=== PATIENT | female | born 1990 | race Caucasian/White ===

== ENCOUNTER 2020-10-05 16:53 | Inpatient (IN) | payer OTHER ==
--- NOTE | 2020-10-05 17:05 | ER Document Report ---
ED Medical Screen (RME) - General Chief Complaint: Abdominal Pain Stated Complaint: ABDOMINAL PAIN Time Seen by Provider: 10/05/20 17:00 Primary Care Provider: CROW CHEN FNP-BC [Primary Care Provider] - Follow up as needed Mode of Arrival: Ambulatory Information source: Patient Notes: 29-year-old female presented to ED with complaint of abdominal pain from the much from top to bottom on the center of her stomach. She states is cramping in her through to her back. She states she has been nausea and vomiting has not eaten the day smokes half to 1 pack/day drinks monthly has a temperature of 100.5 does not know if she has had fever before now. Pulse is 133 will get a septic work-up started. She states he had abdomen started hurting yesterday and she woke up last night and hot sweats and completely drenched. I have greeted and performed a rapid initial assessment of this patient. A comprehensive ED assessment and evaluation of the patient, analysis of test results and completion of medical decision making process will be conducted by an additional ED providers. TRAVEL OUTSIDE OF THE [place] IN LAST 30 DAYS: No - Related Data Allergies/Adverse Reactions: amoxicillin trihydrate [From Augmentin] Allergy (Verified 12/24/13 19:06) Potassium Clavulanate * [From Augmentin] Allergy (Verified 12/24/13 19:06) Past Medical History - General Information source: Patient - Social History Cigarette use (# per day): Yes - 1/2 to 1 pack/day Frequency of alcohol use: Occasional Drug Abuse: None Lives with: Family Family history: Reviewed & Not Pertinent - Past Medical History Cardiac Medical History: Reports: None Pulmonary Medical History: Reports: None EENT Medical History: Reports: None Neurological Medical History: Reports: Hx Migraine Endocrine Medical History: Reports: None Renal/ Medical History: Reports: None Malignancy Medical History: Reports: None GI Medical History: Reports: None Musculoskeltal Medical History: Reports Hx Musculoskeletal Trauma Skin Medical History: Reports None Psychiatric Medical History: Reports: None Traumatic Medical History: Reports: Hx Fractures - t5 t6, Hx Spine Fracture Infectious Medical History: Reports: None Past Surgical History: Reports: Hx Orthopedic Surgery - Back surgery with fusion T5-6 - Immunizations Immunizations up to date: No Hx Diphtheria, Pertussis, Tetanus Vaccination: No Physical Exam - Vital signs Vitals: Temp Pulse Resp BP Pulse Ox 100.5 F H 133 H 16 120/78 98 10/05/20 16:57 10/05/20 16:57 10/05/20 16:57 10/05/20 16:57 10/05/20 16:57 Course - Vital Signs Vital signs: Temp Pulse Resp BP Pulse Ox 100.5 F H 133 H 16 120/78 98 10/05/20 16:57 10/05/20 16:57 10/05/20 16:57 10/05/20 16:57 10/05/20 16:57 Doctor's Discharge - Discharge Referrals: CROW CHEN, LIFT SLAB OPERATOR-BC [Primary Care Provider] - Follow up as needed
[2020-10-05] MEDS ORDERED: NORMAL SALINE 1000 ML 1,000 ML IV ONE ×2 (17:07→17:09)
[2020-10-05] MEDS ORDERED: ACETAMINOPHEN 325 MG TABLET PO ONE (17:08)
--- NOTE | 2020-10-05 18:03 | RADIOLOGY REPORT (SQ) ---
EXAM DESCRIPTION: CHEST SINGLE VIEW IMAGES COMPLETED DATE/TIME: 10/05/2020 5:48 pm REASON FOR STUDY: cough fever COMPARISON: 12/24/2013 EXAM PARAMETERS: NUMBER OF VIEWS: One view. TECHNIQUE: Single frontal radiographic view of the chest acquired. RADIATION DOSE: NA LIMITATIONS: None. FINDINGS: LUNGS AND PLEURA: No opacities, masses or pneumothorax. No pleural effusion. MEDIASTINUM AND HILAR STRUCTURES: No masses. Contour normal. HEART AND VASCULAR STRUCTURES: Heart normal in size. Normal vasculature. BONES: No acute findings. HARDWARE: Spinal hardware. OTHER: No other significant finding. IMPRESSION: NO ACUTE RADIOGRAPHIC FINDING IN THE CHEST. TECHNICAL DOCUMENTATION: JOB ID: [id number] 2010 [employer]- All Rights Reserved Reading location - IP/workstation name: [email or web address]
[2020-10-05 18:48] LABS: HEMATOCRIT 40.7 % (36.0-47.0); HEMOGLOBIN 13.9 g/dL (12.0-15.5); MEAN CORPUSCULAR HEMOGLOBIN 32.1 pg (27.0-33.4); MEAN CORPUSCULAR HGB CONC 34.2 g/dL (32.0-36.0); MEAN CORPUSCULAR VOLUME 94 fl (80-97); PLATELET COUNT 175 10^3/uL (150-450); RED BLOOD COUNT 4.33 10^6/uL (3.72-5.28); RED CELL DISTRIBUTION WIDTH 14.2 % (11.5-14.0); WHITE BLOOD COUNT 17.9 10^3/uL (4.0-10.5)
[2020-10-05 18:57] LABS: PROTHROMBIN TIME 14.4 SEC (11.4-15.4)
[2020-10-05 18:59] LABS: BLOOD UREA NITROGEN 7 mg/dL (7-20); CALCIUM 8.9 mg/dL (8.4-10.2); GLUCOSE 89 mg/dL (75-110)
[2020-10-05 19:00] LABS: ALBUMIN 3.6 g/dL (3.5-5.0); ALKALINE PHOSPHATASE 79 U/L (38-126); ANION GAP 8 (5-19); ASPARTATE AMINO TRANSFERASE 14 U/L (14-36); BILIRUBIN,DIRECT 0.1 mg/dL (0.0-0.4); BILIRUBIN,TOTAL 0.7 mg/dL (0.2-1.3); CARBON DIOXIDE 24 mmol/L (22-30); CHLORIDE 100 mmol/L (98-107); POTASSIUM 3.7 mmol/L (3.6-5.0); TOTAL PROTEIN 6.7 g/dL (6.3-8.2)
[2020-10-05 19:04] LABS: ABSOLUTE LYMPHOCYTES# (MANUAL) 0.7 10^3/uL (0.5-4.7); ABSOLUTE MONOCYTES # (MANUAL) 0.9 10^3/uL (0.1-1.4); BAND NEUTROPHILS % (MANUAL) 1 % (3-5); BASOPHILS % (MANUAL) 0 % (0-2); EOSINOPHILS % (MANUAL) 0 % (0-6); LYMPHOCYTES % (MANUAL) 3 % (13-45); METAMYELOCYTES % (MANUAL) 1 % (0-1); MONOCYTES % (MANUAL) 5 % (3-13); SEGMENTED NEUTROPHILS % (MAN) 89 % (42-78); TOTAL CELLS COUNTED 100
[2020-10-05 19:05] LABS: PLATELET CLUMPS PRESENT; PLATELET COMMENT ADEQUATE; RBC MORPHOLOGY COMMENT NORMO-CYTIC/CHROMIC
[2020-10-05 19:06] LABS: SMUDGE CELLS PRESENT
--- NOTE | 2020-10-05 19:33 | ER Document Report ---
ED General - General Chief Complaint: Abdominal Pain Stated Complaint: ABDOMINAL PAIN Time Seen by Provider: 10/05/20 17:00 Mode of Arrival: Ambulatory Information source: Patient Notes: Patient presents to the ER for evaluation of lower abdominal pain radiating to the low back with dysuria that began yesterday. The patient states she has noticed fever with nighttime sweats last night. She denies cough or congestion. She denies chest pain or shortness of breath. She admits to nausea but denies vomiting. She denies diarrhea. Denies vag bleeding, pain or discharge. Nursing notes reviewed and past medical, social, and family histories reviewed and validated. TRAVEL OUTSIDE OF THE [place] IN LAST 30 DAYS: No - Related Data Allergies/Adverse Reactions: amoxicillin trihydrate [From Augmentin] Allergy (Verified 10/05/20 18:37) Potassium Clavulanate * [From Augmentin] Allergy (Verified 10/05/20 18:37) Past Medical History - General Information source: Patient Last Menstrual Period: 1 week - Social History Smoking Status: Current Every Day Smoker Cigarette use (# per day): Yes - 1/2 to 1 pack/day Chew tobacco use (# tins/day): No Smoking Education Provided: Yes Frequency of alcohol use: Occasional Drug Abuse: None Lives with: Family Family History: None Patient has suicidal ideation: No Patient has homicidal ideation: No - Past Medical History Cardiac Medical History: Reports: None Pulmonary Medical History: Reports: None EENT Medical History: Reports: None Neurological Medical History: Reports: Hx Migraine Endocrine Medical History: Reports: None Renal/ Medical History: Reports: None Malignancy Medical History: Reports: None GI Medical History: Reports: None Musculoskeletal Medical History: Reports Hx Musculoskeletal Trauma Skin Medical History: Reports None Psychiatric Medical History: Reports: None Traumatic Medical History: Reports: Hx Fractures - t5 t6, Hx Spine Fracture Infectious Medical History: Reports: None Past Surgical History: Reports: Hx Orthopedic Surgery - Back surgery with fusion T5-6 - Immunizations Immunizations up to date: No Hx Diphtheria, Pertussis, Tetanus Vaccination: No Review of Systems - Review of Systems Notes: Constitutional: Positive for fever. HENT: Negative for sore throat. Eyes: Negative for visual changes. Cardiovascular: Negative for chest pain. Respiratory: Negative for shortness of breath. Gastrointestinal: Positive for nausea. Negative for diarrhea. Genitourinary: Positive for dysuria. Positive for low back pain. Positive for lower abdominal pain. Musculoskeletal: Negative for back pain. Skin: Negative for rash. Neurological: Negative for headaches, weakness or numbness. 10 point ROS negative except as marked above and in HPI. Physical Exam - Vital signs Vitals: Temp Pulse Resp BP Pulse Ox 100.5 F H 133 H 16 120/78 98 10/05/20 16:57 10/05/20 16:57 10/05/20 16:57 10/05/20 16:57 10/05/20 16:57 - Notes Notes: CONSTITUTIONAL: Patient is illappearing. SKIN: Warm, dry, and intact without rash EYES: Extraocular movements are grossly intact, clear conjunctiva HENT: Normocephalic, atraumatic, moist mucus membranes NECK: No obvious swelling, normal range of motion PULMONARY: Normal chest rise and fall. Breath sounds clear and equal bilaterally. No respiratory distress or stridor CARDIOVASCULAR: Regular rate. No murmurs, rubs, gallops. Distal extremities are warm and well perfused. ABDOMINAL: The abdomen is soft. TTP over the suprapubic area. NEUROLOGIC: Normal speech, moves all extremities. MUSCULOSKELETAL: No gross deformities, atraumatic PSYCHIATRIC: Normal mood and affect Course - Vital Signs Vital signs: Temp Pulse Resp BP Pulse Ox 100.5 F H 115 H 16 120/78 97 10/05/20 16:57 10/05/20 18:10 10/05/20 16:57 10/05/20 16:57 10/05/20 18:15 - Laboratory Result Diagrams: 10/05/20 18:24 10/05/20 18:24 Laboratory results interpreted by me: 10/05/20 10/05/20 10/05/20 18:24 18:24 20:30 WBC 17.9 H RDW 14.2 H Seg Neuts % (Manual) 89 H Band Neutrophils % 1 L Lymphocytes % (Manual) 3 L Abs Neuts (Manual) 16.3 H Sodium 132.1 L Urine Protein 30 H Urine Ketones 80 H Urine Blood MODERATE H Ur Leukocyte Esterase LARGE H - Consults Hospitalist consult Time consulted: 21:57 Reason for consultation: 10/05/20 21:57 This case was discussed with Dr. Goodman who agrees to evaluate the patient in the emergency room for admission. Discharge - Discharge Clinical Impression: Acute pyelonephritis Condition: Stable Disposition: ADMITTED OBSERVATION Admitting Provider: Rex (Hospitalist) Unit Admitted: Medical Floor
--- NOTE | 2020-10-05 19:47 | EKG REPORT ---
SEVERITY:- OTHERWISE NORMAL ECG - SINUS TACHYCARDIA : Confirmed by: Ector Buck MD 05-Oct-2020 19:47:28
[2020-10-05 20:46] LABS: APPEARANCE,URINE CLOUDY; BILIRUBIN,URINE NEGATIVE (NEGATIVE); COLOR,URINE YELLOW; GLUCOSE, URINE NEGATIVE (NEGATIVE); KETONES,URINE 80 mg/dL (NEGATIVE); LEUKOCYTE ESTERASE,URINE LARGE (NEGATIVE); NITRITE,URINE NEGATIVE (NEGATIVE); PROTEIN,URINE 30 mg/dL (NEGATIVE); URINE SPECIFIC GRAVITY 1.019; UROBILINOGEN,URINE NEGATIVE mg/dL (<2.0)
--- NOTE | 2020-10-05 21:09 | RADIOLOGY REPORT (SQ) ---
EXAM DESCRIPTION: CT ABDOMEN PELVIS WITHOUT IV CONTRAST COMPLETED DATE/TME: 10/05/2020 20:16 CLINICAL HISTORY: 29 years, Female, lower abd pain COMPARISON: None. TECHNIQUE: Axial images without IV or oral contrast. Images stored on PACS. All CT scanners at this facility use dose modulation, iterative reconstruction, and/or weight based dosing when appropriate to reduce radiation dose to as low as reasonably achievable (ALARA). FINDINGS: Lung bases are unremarkable. Liver demonstrates a tiny 5 mm hypodensity at the junction of the right and left lobes. Series 601 image 16. Two small to characterize. More likely a cyst. Mild to moderate splenomegaly. Biliary system, pancreas, adrenal glands, kidneys, aorta and para-aortic regions are unremarkable. Suspected mild gastritis. Minimal increased fluid in small bowel loops with minimal dilatation. Mild increased colonic stool. No evidence for free fluid. Lumbar spine is unremarkable. Kidneys without hydronephrosis or focal lesions. CT of the pelvis demonstrates a dilated cecum and ascending colon extending inferiorly to the lower pelvis. Distended with fluid. There are multiple tiny air bubbles projecting in the periphery of the cecum. These appear to simulate air in the bowel wall but a more likely located in the peripheral lumen the to the wall. Series 3 image 69. There is a normal appendix seen in the right pelvis. There is an anteflexed uterus which is displaced to the left by the dilated cecum. No suspicious adnexal abnormality or free fluid. No obvious adenopathy. Bony pelvis is unremarkable. IMPRESSION: 1. There is a moderately dilated cecum extending inferiorly into the right lower pelvis and displacing the uterus and small bowel towards the left side. There is no obvious cecal wall thickening. Air bubbles projecting in the periphery of the cecum are more likely intraluminal and less likely in the colonic wall. No evidence for free air. Better evaluation of the cecum can be achieved with injection of IV contrast. 2. Nonspecific bowel pattern with mild gastritis and mild dilatation of small bowel loops increased colonic stool. 3. Normal appendix. 4. Tiny 5 mm liver hypodensity too small to characterize but most likely a cyst. 5. Mild to moderate splenomegaly.
[2020-10-05] MEDS ORDERED: CEFTRIAXONE INJ 1000 MG VIAL IV ONE (21:57)
[2020-10-05] MEDS ORDERED: ONDANSETRON HCL INJ/PF 4 MG/2 ML SDV IV PRN (22:29)
--- NOTE | 2020-10-05 22:51 | PDOC H&P ---
History of Present Illness Admission Date/PCP: CROW CHEN, DETECTIVE SERGEANT- History of Present Illness: ROXANE HARTMANN is a 29 year old female with no previous past medical history who presents with a complaint of abdominal pain. She said it started yesterday morning when she woke up. She describes it as lower abdominal pain and she sometimes feels some discomfort in her bilateral flanks. She denies any dysuria but states she had increased urinary frequency since yesterday. She thinks she may have had a fever at home but she did not check her temperature. She did have an elevated temperature here of 100.5 Fahrenheit. She also had a leukocytosis. CT of the abdomen and pelvis was negative for evidence of pyelonephritis but it was a noncontrasted study. Urinalysis was suggestive of infection. Past Medical History Cardiac Medical History: Reports: None Pulmonary Medical History: Reports: None EENT Medical History: Reports: None Neurological Medical History: Reports: Migraine Endocrine Medical History: Reports: None Renal/ Medical History: Reports: None Malignancy Medical History: Reports: None GI Medical History: Reports: None Skin Medical History: Reports: None Psychiatric Medical History: Reports: None Infectious Medical History: Reports: None Past Surgical History Past Surgical History: Reports: Orthopedic Surgery - Back surgery with fusion T5-6 Social History Lives with: Family Smoking Status: Current Every Day Smoker Family History Family History: None Parental Family History Reviewed: Yes Children Family History Reviewed: NA Sibling(s) Family History Reviewed.: Yes Medication/Allergy Home Medications: Tramadol HCl [Ultram 50 mg Tablet] 50 mg PO ASDIR PRN #20 tablet 12/24/13 Allergies/Adverse Reactions: amoxicillin trihydrate [From Augmentin] Allergy (Verified 10/05/20 18:37) Potassium Clavulanate * [From Augmentin] Allergy (Verified 10/05/20 18:37) Review of Systems All systems: reviewed and no additional remarkable complaints except as stated - All systems were reviewed and were negative except as noted in the HPI Physical Exam Vital Signs: Temp Pulse Resp BP Pulse Ox 100.5 F H 115 H 16 120/78 97 10/05/20 16:57 10/05/20 18:10 10/05/20 16:57 10/05/20 16:57 10/05/20 18:15 Intake & Output 10/04/20 10/05/2020 06:59 06:59 06:59 Intake Total 1000 Balance 1000 Weight 56.699 kg General appearance: PRESENT: no acute distress, cooperative, thin Head exam: PRESENT: atraumatic, normocephalic Eye exam: PRESENT: EOMI, PERRLA. ABSENT: conjunctival injection, nystagmus, scleral icterus Ear exam: PRESENT: normal external ear exam Neck exam: PRESENT: full ROM. ABSENT: carotid bruit, JVD, lymphadenopathy, meningismus, tenderness, thyromegaly Respiratory exam: PRESENT: clear to auscultation faye, symmetrical, unlabored. ABSENT: accessory muscle use, chest wall tenderness, crackles, prolonged expiratory phas, rhonchi, tachypnea, wheezes Cardiovascular exam: PRESENT: +S1, +S2, tachycardia Pulses: PRESENT: normal carotid pulses Vascular exam: PRESENT: normal capillary refill GI/Abdominal exam: PRESENT: normal bowel sounds, soft, tenderness - Lower abdomen near the pelvis. ABSENT: distended, guarding, rebound Extremities exam: ABSENT: clubbing, pedal edema Musculoskeletal exam: PRESENT: normal inspection. ABSENT: deformity Neurological exam: PRESENT: alert, awake, oriented to person, oriented to place, oriented to time, oriented to situation, CN II-XII grossly intact. ABSENT: motor sensory deficit Psychiatric exam: PRESENT: appropriate affect, normal mood Skin exam: PRESENT: dry, warm Results Laboratory Results: 10/05/20 18:24 10/05/20 18:24 10/05/20 10/05/20 10/05/20 18:24 18:24 18:24 WBC 17.9 H RBC 4.33 Hgb 13.9 Hct 40.7 MCV 94 MCH 32.1 MCHC 34.2 RDW 14.2 H Plt Count 175 Seg Neutrophils % Not Reportable Sodium 132.1 L Potassium 3.7 Chloride 100 Carbon Dioxide 24 Anion Gap 8 BUN 7 Creatinine 0.52 Est GFR ( Amer) > 60 Glucose 89 Lactic Acid Calcium 8.9 Total Bilirubin 0.7 AST 14 Alkaline Phosphatase 79 Total Protein 6.7 Albumin 3.6 Serum HCG, Qual NEGATIVE Urine Color Urine Appearance Urine pH Ur Specific [place] Urine Protein Urine Glucose (UA) Urine Ketones Urine Blood Urine Nitrite Ur Leukocyte Esterase Urine WBC (Auto) Urine RBC (Auto) 10/05/20 10/05/20 18:24 20:30 WBC RBC Hgb Hct MCV MCH MCHC RDW Plt Count Seg Neutrophils % Sodium Potassium Chloride Carbon Dioxide Anion Gap BUN Creatinine Est GFR ( Amer) Glucose Lactic Acid 0.7 Calcium Total Bilirubin AST Alkaline Phosphatase Total Protein Albumin Serum HCG, Qual Urine Color YELLOW Urine Appearance CLOUDY Urine pH 5.0 Ur Specific [place] 1.019 Urine Protein 30 H Urine Glucose (UA) NEGATIVE Urine Ketones 80 H Urine Blood MODERATE H Urine Nitrite NEGATIVE Ur Leukocyte Esterase LARGE H Urine WBC (Auto) >182 Urine RBC (Auto) 16 Impressions: Chest X-Ray 10/05/20 17:06 IMPRESSION: NO ACUTE RADIOGRAPHIC FINDING IN THE CHEST. Abdomen/Pelvis CT 10/05/20 19:25 IMPRESSION: 1. There is a moderately dilated cecum extending inferiorly into the right lower pelvis and displacing the uterus and small bowel towards the left side. There is no obvious cecal wall thickening. Air bubbles projecting in the periphery of the cecum are more likely intraluminal and less likely in the colonic wall. No evidence for free air. Better evaluation of the cecum can be achieved with injection of IV contrast. 2. Nonspecific bowel pattern with mild gastritis and mild dilatation of small bowel loops increased colonic stool. 3. Normal appendix. 4. Tiny 5 mm liver hypodensity too small to characterize but most likely a cyst. 5. Mild to moderate splenomegaly. Assessment and Plan - Diagnosis (1) Sepsis Qualifiers: Sepsis type: sepsis due to unspecified organism Sepsis acute organ dysfunction status: without acute organ dysfunction Qualified Code(s): A41.9 - Sepsis, unspecified organism Is this a current diagnosis for this admission?: Yes (2) Acute pyelonephritis Is this a current diagnosis for this admission?: Yes - Plan Summary Summary: Urine culture pending. Blood cultures were also obtained. We will start her empirically on some Rocephin a little bit of IV fluids. We will monitor her symptoms to see if she needs further imaging. There was a mention on her CT of the dilated cecum with fluid in the colon but it appears that she has a fairly substantial stool burden and I suspect that placing her on a bowel regimen will help to relieve this finding. She has a normal abdominal exam with the exception of some mild lower abdominal tenderness indicating an inflamed blad kuldip. - Time Time Spent with patient: 35 or more minutes Anticipated Discharge Disposition: Home, Self Care Anticipated Discharge Timeframe: within 72 hours - Inpatient Certification Based on my medical assessment, after consideration of the patient's comorbidities, presenting symptoms, or acuity I expect that the services needed warrant INPATIENT care.: Yes I certify that my determination is in accordance with my understanding of Medicare's requirements for reasonable and necessary INPATIENT services [42 CFR 412.3e].: Yes Medical Necessity: Need Close Monitoring Due to Risk of Patient Decompensation, Need For IV Fluids, Need For Continuous Telemetry Monitoring, Need for IV Antibiotics, Risk of Complication if Not Cared For in Hospital
[2020-10-06] MEDS: ACETAMINOPHEN 325 MG TABLET PO PRN ×4 (04:04→19:33)
[2020-10-06] MEDS: NORMAL SALINE 1000 ML 1,000 ML IV PRN ×2 (04:05→19:33)
[2020-10-06 07:49] LABS: HEMATOCRIT 28.5 % (36.0-47.0); MEAN CORPUSCULAR HEMOGLOBIN 32.5 pg (27.0-33.4); MEAN CORPUSCULAR HGB CONC 34.3 g/dL (32.0-36.0); MEAN CORPUSCULAR VOLUME 95 fl (80-97); PLATELET COUNT 121 10^3/uL (150-450); RED BLOOD COUNT 3.01 10^6/uL (3.72-5.28); RED CELL DISTRIBUTION WIDTH 14.1 % (11.5-14.0); WHITE BLOOD COUNT 11.1 10^3/uL (4.0-10.5)
[2020-10-06 07:53] LABS: HEMOGLOBIN 9.8 g/dL (12.0-15.5)
[2020-10-06 08:15] LABS: ANION GAP 5 (5-19); BLOOD UREA NITROGEN 7 mg/dL (7-20); CALCIUM 7.4 mg/dL (8.4-10.2); CARBON DIOXIDE 23 mmol/L (22-30); CHLORIDE 108 mmol/L (98-107); GLUCOSE 73 mg/dL (75-110); POTASSIUM 3.3 mmol/L (3.6-5.0)
[2020-10-06] MEDS ORDERED: POTASSIUM CHLORIDE 10 MEQ TABLET.ER PO ONE (09:36)
[2020-10-06] MEDS ORDERED: CALCIUM GLUCONATE 1000 MG/10 ML INJ IV ONE (09:36)
[2020-10-06] MEDS ORDERED: CALCIUM GLUCONATE 1 GM/NS 50 ML RTU IV ONE (11:00)
--- NOTE | 2020-10-06 12:51 | PDOC PROGRESS REPORT ---
Subjective Date:: 10/06/20 Subjective:: Patient feels better today. States that the flank pain is improved. Still havi ng a lot of suprapubic pain. Denies history of kidney stones. Denies respiratory symptoms. Reason For Visit: SEPSIS, PYELONEPHRITIS Physical Exam Vital Signs: Temp Pulse Resp BP Pulse Ox 97.8 F 86 16 103/52 L 99 10/06/20 10:03 10/06/20 10:03 10/06/20 10:03 10/06/20 10:03 10/06/20 10:03 Intake & Output 10/05/20 10/06/20 10/07/20 06:59 06:59 06:59 Intake Total 1000 300 Balance 1000 300 Weight 56.699 kg General appearance: PRESENT: no acute distress, cooperative Neck exam: ABSENT: JVD Respiratory exam: PRESENT: clear to auscultation faye, symmetrical, unlabored. ABSENT: tachypnea, wheezes Cardiovascular exam: PRESENT: RRR, +S1, +S2. ABSENT: tachycardia GI/Abdominal exam: PRESENT: soft, tenderness - Suprapubic region. ABSENT: d istended, firm, guarding, rebound, rigid Extremities exam: ABSENT: pedal edema Neurological exam: PRESENT: alert, awake, oriented to person, oriented to place, oriented to time Psychiatric exam: ABSENT: agitated, anxious Focused psych exam: ABSENT: pressured speech Skin exam: ABSENT: jaundice Results Laboratory Results: 10/06/20 07:34 10/06/20 07:34 10/05/20 10/05/20 10/05/20 18:24 18:24 18:24 WBC 17.9 H RBC 4.33 Hgb 13.9 Hct 40.7 MCV 94 MCH 32.1 MCHC 34.2 RDW 14.2 H Plt Count 175 Seg Neutrophils % Not Reportable Sodium 132.1 L Potassium 3.7 Chloride 100 Carbon Dioxide 24 Anion Gap 8 BUN 7 Creatinine 0.52 Est GFR ( Amer) > 60 Glucose 89 Lactic Acid Calcium 8.9 Total Bilirubin 0.7 AST 14 Alkaline Phosphatase 79 Total Protein 6.7 Albumin 3.6 Serum HCG, Qual NEGATIVE Urine Color Urine Appearance Urine pH Ur Specific [place] Urine Protein Urine Glucose (UA) Urine Ketones Urine Blood Urine Nitrite Ur Leukocyte Esterase Urine WBC (Auto) Urine RBC (Auto) 10/05/20 10/05/20 10/06/20 18:24 20:30 07:34 WBC 11.1 H RBC 3.01 L Hgb 9.8 L D Hct 28.5 L MCV 95 MCH 32.5 MCHC 34.3 RDW 14.1 H Plt Count 121 L Seg Neutrophils % Sodium Potassium Chloride Carbon Dioxide Anion Gap BUN Creatinine Est GFR ( Amer) Glucose Lactic Acid 0.7 Calcium Total Bilirubin AST Alkaline Phosphatase Total Protein Albumin Serum HCG, Qual Urine Color YELLOW Urine Appearance CLOUDY Urine pH 5.0 Ur Specific [place] 1.019 Urine Protein 30 H Urine Glucose (UA) NEGATIVE Urine Ketones 80 H Urine Blood MODERATE H Urine Nitrite NEGATIVE Ur Leukocyte Esterase LARGE H Urine WBC (Auto) >182 Urine RBC (Auto) 16 10/06/20 07:34 WBC RBC Hgb Hct MCV MCH MCHC RDW Plt Count Seg Neutrophils % Sodium 136.1 L Potassium 3.3 L Chloride 108 H Carbon Dioxide 23 Anion Gap 5 BUN 7 Creatinine 0.43 L Est GFR ( Amer) > 60 Glucose 73 L Lactic Acid Calcium 7.4 L Total Bilirubin AST Alkaline Phosphatase Total Protein Albumin Serum HCG, Qual Urine Color Urine Appearance Urine pH Ur Specific [place] Urine Protein Urine Glucose (UA) Urine Ketones Urine Blood Urine Nitrite Ur Leukocyte Esterase Urine WBC (Auto) Urine RBC (Auto) Impressions: Chest X-Ray 10/05/20 17:06 IMPRESSION: NO ACUTE RADIOGRAPHIC FINDING IN THE CHEST. Abdomen/Pelvis CT 10/05/20 19:25 IMPRESSION: 1. There is a moderately dilated cecum extending inferiorly into the right lower pelvis and displacing the uterus and small bowel towards the left side. There is no obvious cecal wall thickening. Air bubbles projecting in the periphery of the cecum are more likely intraluminal and less likely in the colonic wall. No evidence for free air. Better evaluation of the cecum can be achieved with injection of IV contrast. 2. Nonspecific bowel pattern with mild gastritis and mild dilatation of small bowel loops increased colonic stool. 3. Normal appendix. 4. Tiny 5 mm liver hypodensity too small to characterize but most likely a cyst. 5. Mild to moderate splenomegaly. Assessment and Plan - Diagnosis (1) Acute pyelonephritis Is this a current diagnosis for this admission?: Yes (2) Sepsis Qualifiers: Sepsis type: sepsis due to unspecified organism Sepsis acute organ dysfunction status: without acute organ dysfunction Qualified Code(s): A41.9 - Sepsis, unspecified organism Is this a current diagnosis for this admission?: Yes (3) Hypocalcemia Is this a current diagnosis for this admission?: Yes - Plan Summary Summary: 10/05/2020 urine culture pending. Blood cultures were also obtained. We will start her empirically on some Rocephin a little bit of IV fluids. We will monitor her symptoms to see if she needs further imaging. There was a mention on her CT of the dilated cecum with fluid in the colon but it appears that she has a fairly substantial stool burden and I suspect that placing her on a bowel regimen will help to relieve this finding. She has a normal abdominal exam with the exception of some mild lower abdominal tenderness indicating an inflamed bladder. 10/06/2020 Continue ceftriaxone Awaiting blood cultures and urine cultures Leukocytosis improved today. Sepsis also showing notable improvement with antibiotics and treatment. Continue gentle IV fluids. We will give some IV calcium to replete hypocalcemia. P.o. potassium chloride replacement for hypokalemia Check metabolic panel and CBC in the morning. - Time Time Spent with patient: 15-24 minutes Anticipated Discharge Disposition: Home, Self Care Anticipated Discharge Timeframe: within 24 hours
[2020-10-06] MEDS ORDERED: NICOTINE 14 MG/24 HR PATCH.TD24 TD PRN (18:00)
[2020-10-06] MEDS ORDERED: CEFTRIAXONE 1 GM/D5W RTU 1 GM/50 ML RTUPB IV SCH (22:00)
[2020-10-07] MEDS: ACETAMINOPHEN 325 MG TABLET PO PRN ×2 (00:15→06:04)
[2020-10-07] MEDS: NORMAL SALINE 1000 ML 1,000 ML IV PRN (06:09)
[2020-10-07 07:50] LABS: HEMATOCRIT 34.9 % (36.0-47.0); HEMOGLOBIN 11.8 g/dL (12.0-15.5); MEAN CORPUSCULAR HEMOGLOBIN 31.9 pg (27.0-33.4); MEAN CORPUSCULAR HGB CONC 33.8 g/dL (32.0-36.0); MEAN CORPUSCULAR VOLUME 94 fl (80-97); PLATELET COUNT 154 10^3/uL (150-450); WHITE BLOOD COUNT 5.2 10^3/uL (4.0-10.5)
[2020-10-07 08:25] LABS: ALBUMIN 2.9 g/dL (3.5-5.0); ALKALINE PHOSPHATASE 58 U/L (38-126); ANION GAP 5 (5-19); ASPARTATE AMINO TRANSFERASE 10 U/L (14-36); BILIRUBIN,DIRECT 0.2 mg/dL (0.0-0.4); BILIRUBIN,TOTAL 0.3 mg/dL (0.2-1.3); BLOOD UREA NITROGEN 8 mg/dL (7-20); CARBON DIOXIDE 22 mmol/L (22-30); CHLORIDE 111 mmol/L (98-107); GLUCOSE 79 mg/dL (75-110); TOTAL PROTEIN 5.7 g/dL (6.3-8.2)
--- NOTE | 2020-10-07 10:16 | PDOC DISCHARGE SUMMARY ---
Impression - Admit/DC Date/PCP Admission Date/Primary Care Provider: 10/05/20 22:30 SHANA MARVIN Discharge Date: 10/07/20 - Discharge Diagnosis (1) Acute pyelonephritis Is this a current diagnosis for this admission?: Yes (2) Sepsis Is this a current diagnosis for this admission?: Yes (3) Hypocalcemia Is this a current diagnosis for this admission?: Yes - Additional Information Discharge Diet: Regular Discharge Activity: Activity As Tolerated Referrals: [facility] [Outside] - 10/13/20 2:00 pm (PHONE APPOINTMENT WITH DR. DENTON.) CROW CHEN FNP-BC [Primary Care Provider] - Follow up as needed Prescriptions: Ciprofloxacin HCl [Cipro 500 mg Tablet] 500 mg PO Q12 8 Days #16 tablet Home Medications: Buprenorphine HCl/Naloxone HCl [Suboxone 8 mg-2 mg Sl Film] 1 film SL BID 10/06/20 Ciprofloxacin HCl [Cipro 500 mg Tablet] 500 mg PO Q12 8 Days #16 tablet 10/07/20 History of Present Illiness History of Present Illness: According to admitting provider: ROXANE HARTMANN is a 29 year old female with no previous past medical history who presents with a complaint of abdominal pain. She said it started yesterday morning when she woke up. She describes it as lower abdominal pain and she sometimes feels some discomfort in her bilateral flanks. She denies any dysuria but states she had increased urinary frequency since yesterday. She thinks she may have had a fever at home but she did not check her temperature. She did have an elevated temperature here of 100.5 Fahrenheit. She also had a leukocy tosis. CT of the abdomen and pelvis was negative for evidence of pyelonephritis but it was a noncontrasted study. Urinalysis was suggestive of infection. Hospital Course Hospital Course: 10/05/2020 urine culture pending. Blood cultures were also obtained. We will start her empirically on some Rocephin a little bit of IV fluids. We will monitor her sy mptoms to see if she needs further imaging. There was a mention on her CT of the dilated cecum with fluid in the colon but it appears that she has a fairly substantial stool burden and I suspect that placing her on a bowel regimen will help to relieve this finding. She has a normal abdominal exam with the exception of some mild lower abdominal tenderness indicating an inflamed bladder. 10/06/2020 Continue ceftriaxone Awaiting blood cultures and urine cultures Leukocytosis improved today. Sepsis also showing notable improvement with antibiotics and treatment. Continue gentle IV fluids. We will give some IV calcium to replete hypocalcemia. P.o. potassium chloride replacement for hypokalemia Check metabolic panel and CBC in the morning. 10/07/2020 Today, patient states she is feeling a whole lot better. She states that her abdominal pain has mostly resolved and she feels good to go home. Her fevers have also stopped since admission. Leukocytosis has resolved and WBC is back to normal. Sepsis has resolved. Her polyuria is also resolved. I discussed with microbiology lab and they inform me urine culture growing mixed sabiha on the preliminary read. Patient is tolerating her meals. Patient is doing a whole lot better, I will discharge patient on ciprofloxacin to complete therapy. He has been given instructions to follow-up with your primary care provider or [facility] for [facility]. Physical Exam Vital Signs: Temp Pulse Resp BP Pulse Ox 98.3 F 86 17 124/65 99 10/07/20 08:26 10/07/20 08:26 10/07/20 08:26 10/07/20 08:26 10/07/20 08:26 Intake & Output 10/06/20 10/07/20 10/08/20 06:59 06:59 06:59 Intake Total 1000 2745 Output Total 200 Balance 1000 2545 Weight 56.699 kg General appearance: PRESENT: no acute distress, cooperative Neck exam: ABSENT: JVD Respiratory exam: PRESENT: clear to auscultation faye, unlabored. ABSENT: tachypnea, wheezes Cardiovascular exam: PRESENT: +S1, +S2. ABSENT: tachycardia GI/Abdominal exam: PRESENT: soft, tenderness - Mild suprapubic. ABSENT: firm, guarding, hernia, rebound, rigid Neurological exam: PRESENT: alert, awake Results Laboratory Results: WBC 5.2 10^3/uL (4.0-10.5) 10/07/20 07:35 RBC 3.70 10^6/uL (3.72-5.28) L 10/07/20 07:35 Hgb 11.8 g/dL (12.0-15.5) L 10/07/20 07:35 Hct 34.9 % (36.0-47.0) L 10/07/20 07:35 MCV 94 fl (80-97) 10/07/20 07:35 MCH 31.9 pg (27.0-33.4) 10/07/20 07:35 MCHC 33.8 g/dL (32.0-36.0) 10/07/20 07:35 RDW 14.0 % (11.5-14.0) 10/07/20 07:35 Plt Count 154 10^3/uL (150-450) 10/07/20 07:35 Lymph % (Auto) Not Reportable 10/05/20 18:24 [place] % (Auto) Not Reportable 10/05/20 18:24 Eos % (Auto) Not Reportable 10/05/20 18:24 Baso % (Auto) Not Reportable 10/05/20 18:24 Absolute Neuts (auto) Not Reportable 10/05/20 18:24 Absolute Lymphs (auto) Not Reportable 10/05/20 18:24 Absolute Monos (auto) Not Reportable 10/05/20 18:24 Absolute Eos (auto) Not Reportable 10/05/20 18:24 Absolute Basos (auto) Not Reportable 10/05/20 18:24 Total Counted 100 10/05/20 18:24 Seg Neutrophils % Not Reportable 10/05/20 18:24 Seg Neuts % (Manual) 89 % (42-78) H 10/05/20 18:24 Band Neutrophils % 1 % (3-5) L 10/05/20 18:24 Lymphocytes % (Manual) 3 % (13-45) L 10/05/20 18:24 Atypical Lymphs % 1 % (0) 10/05/20 18:24 Monocytes % (Manual) 5 % (3-13) 10/05/20 18:24 Eosinophils % (Manual) 0 % (0-6) 10/05/20 18:24 Basophils % (Manual) 0 % (0-2) 10/05/20 18:24 Metamyelocytes % 1 % (0-1) 10/05/20 18:24 Abs Neuts (Manual) 16.3 10^3/uL (1.7-8.2) H 10/05/20 18:24 Abs Lymphs (Manual) 0.7 10^3/uL (0.5-4.7) 10/05/20 18:24 Abs Monocytes (Manual) 0.9 10^3/uL (0.1-1.4) 10/05/20 18:24 Absolute Eos (Manual) 0.0 10^3/uL (0.0-0.6) 10/05/20 18:24 Abs Basophils (Manual) 0.0 10^3/uL (0.0-0.2) 10/05/20 18:24 Smudge Cells PRESENT 10/05/20 18:24 Clumped Platelets PRESENT 10/05/20 18:24 Platelet Comment ADEQUATE 10/05/20 18:24 RBC Morph Comment NORMO-CYTIC/CHROMIC 10/05/20 18:24 PT 14.4 SEC (11.4-15.4) 10/05/20 18:24 INR 1.10 10/05/20 18:24 Sodium 138.2 mmol/L (137-145) 10/07/20 07:35 Potassium 4.0 mmol/L (3.6-5.0) 10/07/20 07:35 Chloride 111 mmol/L (98-107) H 10/07/20 07:35 Carbon Dioxide 22 mmol/L (22-30) 10/07/20 07:35 Anion Gap 5 (5-19) 10/07/20 07:35 BUN 8 mg/dL (7-20) 10/07/20 07:35 Creatinine 0.47 mg/dL (0.52-1.25) L 10/07/20 07:35 Est GFR ( Amer) > 60 (>60) 10/07/20 07:35 Est GFR (MDRD) Non-Af > 60 (>60) 10/07/20 07:35 Glucose 79 mg/dL (75-110) 10/07/20 07:35 Lactic Acid 0.7 mmol/L (0.7-2.1) 10/05/20 18:24 Calcium 8.0 mg/dL (8.4-10.2) L 10/07/20 07:35 Total Bilirubin 0.3 mg/dL (0.2-1.3) 10/07/20 07:35 Direct Bilirubin 0.2 mg/dL (0.0-0.4) 10/07/20 07:35 Neonat Total Bilirubin Not Reportable 10/07/20 07:35 Neonat Direct Bilirubin Not Reportable 10/07/20 07:35 Neonat Indirect Bili Not Reportable 10/07/20 07:35 AST 10 U/L (14-36) L 10/07/20 07:35 ALT 7 U/L (<35) 10/07/20 07:35 Alkaline Phosphatase 58 U/L (38-126) 10/07/20 07:35 Total Protein 5.7 g/dL (6.3-8.2) L 10/07/20 07:35 Albumin 2.9 g/dL (3.5-5.0) L 10/07/20 07:35 Serum HCG, Qual NEGATIVE (NEGATIVE) 10/05/20 18:24 Urine Color YELLOW 10/05/20 20:30 Urine Appearance CLOUDY 10/05/20 20:30 Urine pH 5.0 (5.0-9.0) 10/05/20 20:30 Ur Specific [place] 1.019 10/05/20 20:30 Urine Protein 30 mg/dL (NEGATIVE) H 10/05/20 20:30 Urine Glucose (UA) NEGATIVE mg/dL (NEGATIVE) 10/05/20 20:30 Urine Ketones 80 mg/dL (NEGATIVE) H 10/05/20 20:30 Urine Blood MODERATE (NEGATIVE) H 10/05/20 20:30 Urine Nitrite NEGATIVE (NEGATIVE) 10/05/20 20:30 Urine Bilirubin NEGATIVE (NEGATIVE) 10/05/20 20:30 Urine Urobilinogen NEGATIVE mg/dL (<2.0) 10/05/20 20:30 Ur Leukocyte Esterase LARGE (NEGATIVE) H 10/05/20 20:30 Urine WBC (Auto) >182 /HPF 10/05/20 20:30 Urine RBC (Auto) 16 /HPF 10/05/20 20:30 Squamous Epi Cells Auto 7 /HPF 10/05/20 20:30 Urine Mucus (Auto) FEW /LPF 10/05/20 20:30 Urine Ascorbic Acid NEGATIVE (NEGATIVE) 10/05/20 20:30 Impressions: Chest X-Ray 10/05/20 17:06 IMPRESSION: NO ACUTE RADIOGRAPHIC FINDING IN THE CHEST. Abdomen/Pelvis CT 10/05/20 19:25 IMPRESSION: 1. There is a moderately dilated cecum extending inferiorly into the right lower pelvis and displacing the uterus and small bowel towards the left side. There is no obvious cecal wall thickening. Air bubbles projecting in the periphery of the cecum are more likely intraluminal and less likely in the colonic wall. No evidence for free air. Better evaluation of the cecum can be achieved with injection of IV contrast. 2. Nonspecific bowel pattern with mild gastritis and mild dilatation of small bowel loops increased colonic stool. 3. Normal appendix. 4. Tiny 5 mm liver hypodensity too small to characterize but most likely a cyst. 5. Mild to moderate splenomegaly. Plan Time Spent: Less than 30 Minutes Stroke Is this a Stroke Patient?: No Acute Heart Failure Is this a Heart Failure Patient?: No
[2020-10-07 10:57] VITALS: BP 119/69
== END 2020-10-07 12:13 | disposition home or self-care (01) | DRG 872 ==
LOC: ER 16:53 → EH 22:30 → OBSVTOIN 22:30 → UNDOADMOB 22:40 → EH 22:40 → 2N 10-06 09:47 → EH 10-06 09:47 → 2N 10-06 10:00
PROVIDERS: ADMIT Family Medicine; ATTEND Internal Medicine
DX: A41.9 Sepsis, unspecified organism (principal); N10 Acute pyelonephritis; E83.51 Hypocalcemia; E87.6 Hypokalemia; Z88.1 Allergy status to other antibiotic agents
CPT/HCPCS: 36415; 71045; 74176; 80048; 80053; 81001; 83605; 84703; 85025; 85027; 85610; 87040; 87086; 93005; 93010; 96361; 96365; 99285; J0610; J0696; J2405; J7030